=== PATIENT | male | born 1980 | race Caucasian/White ===

== ENCOUNTER 2018-05-01 07:00 | Outpatient (CLI) | payer BC ==
[2018-05-01] MEDS ORDERED: GADODIAMIDE 5 MMOL/10 ML VIAL IJ ONE (07:01)
== END 2018-05-01 23:59 | disposition home or self-care (01) ==
LOC: MRI 07:00
PROVIDERS: ATTEND Family Medicine
DX: H91.91 Unspecified hearing loss, right ear (principal)
CPT/HCPCS: 70542; 70553; A9579